=== PATIENT | male | born 1970 | race Caucasian/White ===

== ENCOUNTER 2016-05-24 07:05 | Day surgery (SDC) | payer OTHER ==
[2016-05-23 10:16] VITALS: Ht 172.7 cm; Wt 95.5 kg
[2016-05-24] VITALS (11 sets, daily range): BP systolic 110–133; BP diastolic 56–83; PULSE 60–88; RESP 18–59
[~2016-05-24] VITALS: Ht 172.7 cm; Wt 95.5 kg
[~2016-05-24 07:05] MED LIST: CEFAZOLIN 2 GM/50 ML (PMX) 50 ML IVPB ONE; SOD CHLORIDE 0.9% 1,000 ML IV SCH
[2016-05-24 08:16] LABS: BASOPHILS % 0.7 % (0.0-2.0); EOSINOPHILS # 0.1 10^3/ul (0.0-0.5); EOSINOPHILS % 1.7 % (0.0-7.0); HEMATOCRIT 37.8 % (42.0-52.0); HEMOGLOBIN 13.1 g/dl (14.0-18.0); LYMPHOCYTES # 1.6 10^3/ul (0.8-2.9); LYMPHOCYTES % 40.3 % (15.0-51.0); MEAN CORPUSCULAR HEMOGLOBIN 31.1 pg (29.0-33.0); MEAN CORPUSCULAR HGB CONC 34.6 g/dl (32.0-37.0); MEAN CORPUSCULAR VOLUME 89.8 fl (82.0-101.0); MEAN PLATELET VOLUME 7.2 fl (7.4-10.4); MONOCYTE # 0.5 10^3/ul (0.3-0.9); MONOCYTES % 12.3 % (0.0-11.0); NEUTROPHIL # 1.8 10^3/ul (1.6-7.5); PLATELET COUNT 246 10^3/UL (140-440); RED BLOOD COUNT 4.21 10^6/ul (4.70-6.10); RED CELL DISTRIBUTION WIDTH 12.4 % (11.5-14.5); UNCORRECTED WBC 3.9 10^3/ul (4.8-10.8); WHITE BLOOD COUNT 3.9 10^3/ul (4.8-10.8)
[2016-05-24 08:19] LABS: CONDITION 1
[2016-05-24 08:35] LABS: INR 0.98
[2016-05-24 08:36] LABS: PARTIAL THROMBOPLASTIN TIME 31.7 Sec (25.0-35.0); POTASSIUM 3.9 mmol/L (3.5-5.1)
[2016-05-24 08:38] LABS: CREATININE 1.11 mg/dl (0.61-1.24)
[2016-05-24 08:39] LABS: CALCIUM 9.1 mg/dl (8.4-10.2)
[2016-05-24] MEDS ORDERED: DIPHENHYDRAMINE 50 MG INJ IV PRN (09:30)
[2016-05-24] MEDS ORDERED: PROCHLORPERAZINE 10 MG INJ IV PRN (09:30)
[2016-05-24] MEDS ORDERED: HYDROmorphONE (0.2 MG/ML) 10ML SYG IV PRN (09:30)
[2016-05-24] MEDS ORDERED: MEPERIDINE 25 MG INJ IV PRN (09:30)
[2016-05-24] MEDS ORDERED: OXYCODONE/ACETAMINOPHEN (5/325) TAB PO PRN ×2 (09:30)
[2016-05-24] MEDS ORDERED: FENTAnyl 50 MCG/ML VIAL IV PRN (09:30)
[2016-05-24] MEDS ORDERED: METOCLOPRAMIDE 10 MG INJ IV PRN (09:30)
[2016-05-24] MEDS ORDERED: ONDANSETRON 4 MG INJ IV PRN (09:30)
[2016-05-24] MEDS ORDERED: KETOROLAC 30 MG INJ IV ONE (09:30)
[2016-05-24] MEDS ORDERED: CEFAZOLIN 1 GM INJ ONE (09:31)
[2016-05-24] MEDS ORDERED: MIDAZOLAM 1 MG/ML 2 ML INJ ONE (09:31)
[2016-05-24] MEDS ORDERED: FENTAnyl 50 MCG/ML VIAL ONE (09:31)
[2016-05-24] MEDS ORDERED: PROPOFOL 20 ML ONE (09:31)
[2016-05-24] MEDS ORDERED: LIDOCAINE 2% (SDV) 5 ML INJ ONE (09:31)
[2016-05-24] MEDS ORDERED: BUPIVACAINE 0.25%/EPI (SDV) 30 ML INJ ONE (10:07)
[2016-05-24] MEDS ORDERED: LIDOCAINE 1%/EPI 30 ML INJ ONE (10:44)
[2016-05-24] MEDS ORDERED: ONDANSETRON 4 MG INJ ONE (10:52)
[2016-05-24] MEDS ORDERED: METOCLOPRAMIDE 10 MG INJ ONE (10:53)
--- NOTE | 2016-05-24 12:10 | OPR ---
DATE OF OPERATION: 05/24/2016 PREOPERATIVE DIAGNOSIS: Left temporal lesions x2. POSTOPERATIVE DIAGNOSES: 1. Left temporal lesion. 2. Left temporal/scalp lesion. PROCEDURE: 1. Excision of left temporal lesion with local skin flap advancement closure. 2. Excision of left temporal/scalp lesion with local skin flap advancement closure. ANESTHESIA: General. ANESTHESIOLOGIST: Dr. Ivy Ames SURGEON: Hema Lindsey MD OPERATIONS GENERAL AGENT: Dr. Del Valle INDICATIONS FOR PROCEDURE: The patient is a 45-year-old male who presented with a relatively large raised pigmented lesion over his left temporal area. He wished for it to be removed. There was a s econd lesion more superiorly that was somewhat smaller and he also requested removal of that lesion. The patient consented and was scheduled for surgery. DESCRIPTION OF PROCEDURE: The patient was brought to the operating theater and placed under general anesthesia. The left temporal and scalp region was prepped and draped in the usual sterile fashion . Attention was first directed to the larger lesion. An elliptical incision was made widely around the lesion. This portion of skin was elevated and transected using cautery. It was removed and se nt for permanent pathologic analysis. The area was then infiltrated with 1% lidocaine local anesthe tic with epinephrine. Bleeding was controlled with cautery. Skin flaps were then created inferiorl y and superiorly to allow for tension-free closure. The flaps were rotated together and the skin wa s closed with 3-0 nylon sutures in simple interrupted fashion. A similar procedure was utilized to r emove the more superior lesion which was at the junction between the sikh region and the scalp. A gain, an elliptical excision took place and this lesion was excised, removed and sent for pathologic analysis. Again, skin flaps were created and again the area was infiltrated with 1% lidocaine loca l anesthetic with epinephrine, and the skin was then closed with 3-0 nylon sutures in simple interru pted fashion. The patient tolerated the procedure well. Estimated blood loss was 10 mL. There wer e no complications and the patient was transported in stable condition to the recovery room. Dictated By: HEMA RILEY/NTS Conf#: [id number] DID#: [id number]
== END 2016-05-24 13:17 | disposition home or self-care (01) ==
LOC: SDS 07:05
PROVIDERS: ATTEND Surgery Surgical Oncology
DX: L57.8 Other skin changes due to chronic exposure to nonionizing radiation (principal); L82.1 Other seborrheic keratosis
CPT/HCPCS: 14020; 80048; 85025; 85610; 85730; 88305; J0690; J1885; J2250; J2405; J2765; J3010; Z7512; Z7610

== ENCOUNTER 2018-06-10 09:33 | Inpatient (IN) | payer OTHER ==
[~2018-06-10 09:33] MED LIST changes: -CEFAZOLIN 2 GM/50 ML (PMX) 50 ML IVPB ONE; +HYDR-4011 PO; -SOD CHLORIDE 0.9% 1,000 ML IV SCH
[2018-06-10 13:00] VITALS: PULSE 88
--- NOTE | 2018-06-10 13:00 | NUR ---
RN NOTES: PT ARRIVED TO UNIT FROM [facility]. PT IS AOX4, STEADY GAIT, RESPIRATIONS UNLABORED. WILL NOTIFY MD FOR HIS ARRIVAL TO UNIT. PROJECTION PRINTER ON. WILL MONITOR PT.
[2018-06-10] MEDS ORDERED: BACLOFEN 10 MG TAB PO PRN (14:30)
[2018-06-10] MEDS ORDERED: MULTIVITAMINS 10 ML, THIAMINE 100 MG, FOLIC ACID 1 MG in SOD CHLORIDE 0.9% 1,000 ML IVPB SCH (14:30)
[2018-06-10] MEDS ORDERED: NACL 0.9% 3 ML SYG IV SCH (14:30)
[2018-06-10] MEDS ORDERED: ACETAMINOPHEN 325 MG TAB PO PRN (14:30)
[2018-06-10] MEDS: LORAZEPAM 2 MG INJ IV PRN (14:37)
[2018-06-10] MEDS: PANTOPRAZOLE 40 MG INJ IV SCH (14:37)
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
[2018-06-10 15:14] VITALS: BP 111/57; PULSE 85; RESP 20
[2018-06-10] MEDS ORDERED: FOLIC ACID 1 MG TAB PO ONE (15:30)
[2018-06-10] MEDS ORDERED: THIAMINE 100 MG TAB PO ONE (15:30)
[2018-06-10] MEDS ORDERED: MULTIVITAMINS THERAPEUTIC TAB PO ONE (15:30)
[2018-06-10] MEDS ORDERED: METOCLOPRAMIDE 10 MG INJ IV PRN (16:00)
--- NOTE | 2018-06-10 16:10 | CONS ---
Date/Time of Note Date/Time of Note DATE: 06/10/18 TIME: 15:53 Assessment/Plan Assessment/Plan Hospital Course Summary Assessment and Plan: Assessment: Hematemesis, melena Normocytic anemia Epigastric pain Alcohol withdrawal Persistent Hiccups -Started on baclofen - will add Reglan PRN Plan: PPI BID-we will start Reglan 10 mg every 6 hours as needed for hiccups Unable to reviewed detailed CT abd/pelvis report will order Liver u/s to assess for liver cirrhosis - will also order INR- currently plt function wnl Ativan for ETOh withdrawal - maintain close observation Continue PPI NPO after 06/11/18 0500 for EGD tomorrow Endoscopy - risks/benefits/alternatives/indications of procedure and sedation/anesthesia discussed with patient who states understanding and gives informed consent to proceed. Patient seen in collaboration with Dr. Mcintosh Result Diagram: 06/10/18 1503 06/10/18 1503 Results 24hrs Laboratory Tests Test 06/10/18 15:03 White Blood Count 8.2 # Red Blood Count 3.84 L Hemoglobin 11.8 L Hematocrit 34.1 L Mean Corpuscular Volume 88.8 Mean Corpuscular Hemoglobin 30.7 Mean Corpuscular Hemoglobin Concent 34.6 Red Cell Distribution Width 11.9 Platelet Count 178 Mean Platelet Volume 8.4 Immature Granulocytes % 0.500 H Neutrophils % 82.2 H Lymphocytes % 10.9 L Monocytes % 6.2 Eosinophils % 0.0 Basophils % 0.2 Nucleated Red Blood Cells % 0.0 Immature Granulocytes # 0.040 H Neutrophils # 6.8 Lymphocytes # 0.9 Monocytes # 0.5 Eosinophils # 0.0 Basophils # 0.0 Nucleated Red Blood Cells # 0.0 Sodium Level 136 Potassium Level 3.8 Chloride Level 99 Carbon Dioxide Level 25 Anion Gap 12 Blood Urea Nitrogen 9 Creatinine 0.81 Est Glomerular Filtrat Rate mL/min > 60 Glucose Level 128 Calcium Level 8.3 L Total Bilirubin 1.1 Direct Bilirubin 0.00 Indirect Bilirubin 1.1 Aspartate Amino Transf (AST/SGOT) 45 Alanine Aminotransferase (ALT/SGPT) 41 Alkaline Phosphatase 78 Total Protein 7.0 Albumin 3.8 Globulin 3.20 Albumin/Globulin Ratio 1.18 CC: SARAH MCINTOSH MD ; Consultation Date/Type/Reason Admit Date/Time Jun 10, 2018 at 12:43 Date of Consultation: Jun 10, 2018 Type of Consult GI Reason for Consultation Hematemesis/Melena Hx of Present Illness This a 47-year-old male with history of longtime alcohol abuse (started drinking at the age of 17 and goes on binges every 3-6 months) his last binge patient drink for 6 days straight drinking 2-3 bottles of alcohol per day. He presented to [facility] with complaints of epigastric pain and hematemesis patient was treated there with PPI and antiemetics with the plan to discharge, however patient went into alcohol withdrawal. Labs were obtained there, noted elevated lactic acid that resolved within 24 hours LFTs were normal at [facility] and again normal here, lipase was checked and found to be within normal limits with. A noted hemoglobin of 14.9 on 06/09/18 at [facility] hemoglobin here Today is 11.8, hematocrit 34.1, MCV 88.8, MCH 30.7. CT abdomen pelvis was obtained at [facility] in notes appears CT showed distended bladder, other stephenson no acute findings, patient was asked to void which he then voided 1000 mL without difficulty. However going through paperwork I do not see the full report of the CT scan abdomen/pelvis therefore I am unable to review complete results. There is a CD in the chart which i am unable to accesses findings. Currently patient complains of persistent hiccups he states he has been having melena for the past few days he denies bright red blood per rectum denies further episodes of nauseavomiting or hematemesis. Review of Systems: A 12 system, review was conducted and is negative except as noted in the HPI or here. Past Medical History Medications Current Medications IV Flush (NS 3 ml) 3 ml PER PROTOCOL IV ; Start 06/10/18 at 14:30 Ondansetron HCl (Zofran Inj) 4 mg Q6H PRN IV NAUSEA; Start 06/10/18 at 14:30 Acetaminophen (Tylenol Tab) 650 mg Q6H PRN PO MODERATE PAIN LEVEL 4-6; Start 06/10/18 at 14:30 Acetaminophen/ Hydrocodone Bitart ([place] (5/325)) 1 tab Q6H PRN PO BREAKTHROUGH PAIN; Start 06/10/18 at 14:30 Pantoprazole (Protonix Iv) 40 mg BID@0600,1800 IV Last administered on 06/10/18at 14:37; Admin Dose 40 MG; Start 06/10/18 at 14:30 Lorazepam (Ativan) 2 mg Q2 PRN IV CONTROL WITHDRAWAL SYMPTOMS Last administered on 06/10/18at 14:37; Admin Dose 2 MG; Start 06/10/18 at 14:30 Baclofen (Lioresal) 10 mg TID PRN PO hiccups; Start 06/10/18 at 14:30 Allergies: Coded Allergies: No Known Allergy (Unverified , 05/02/18) Social History Alcohol Use: heavy Smoking Status: Never smoker Drug Use: none Exam/Review of Systems Vital Signs Vitals Vital Signs Date Temp Pulse Resp B/P (MAP) Pulse Ox O2 O2 Flow FiO2 Time Delivery Rate 06/10/18 98.3 85 20 111/57 98 15:14 (75) Exam PHYSICAL EXAMINATION: GENERAL: Alert & oriented, overweight, in no acute distress-with persistent hiccups SKIN: No lesions HEAD: Normocephalic, atraumatic, no tenderness. EYES: Pupils equal reactive to light, no discharge. EARS/NOSE AND THROAT: Ears normal, nose normal NECK: Supple, no masses, thyroid normal CHEST: Inspection within normal limits. CARDIOVASCULAR: Heart: Regular rate and rhythm RESPIRATORY: Lungs clear to auscultation GASTROINTESTINAL AND LIVER: Abdomen: Soft, epigastric tenderness, non-distended, no hernias, no masses, no organomegaly, no ascites, no guarding, no rebound tenderness, normoactive bowel sounds. Rectal: Deferred. EXTREMITIES: No cyanosis, clubbing or edema. Medications Medications Current Medications IV Flush (NS 3 ml) 3 ml PER PROTOCOL IV ; Start 06/10/18 at 14:30 Ondansetron HCl (Zofran Inj) 4 mg Q6H PRN IV NAUSEA; Start 06/10/18 at 14:30 Acetaminophen (Tylenol Tab) 650 mg Q6H PRN PO MODERATE PAIN LEVEL 4-6; Start 06/10/18 at 14:30 Acetaminophen/ Hydrocodone Bitart ([place] (5/325)) 1 tab Q6H PRN PO BREAKTHROUGH PAIN; Start 06/10/18 at 14:30 Pantoprazole (Protonix Iv) 40 mg BID@0600,1800 IV Last administered on 06/10/18at 14:37; Admin Dose 40 MG; Start 06/10/18 at 14:30 Lorazepam (Ativan) 2 mg Q2 PRN IV CONTROL WITHDRAWAL SYMPTOMS Last administered on 06/10/18at 14:37; Admin Dose 2 MG; Start 06/10/18 at 14:30 Baclofen (Lioresal) 10 mg TID PRN PO hiccups; Start 06/10/18 at 14:30 JEREMY VERDUZCO Jun 10, 2018 16:08
[2018-06-10 16:11] VITALS: PULSE 86
--- NOTE | 2018-06-10 18:59 | NUR ---
EOSS: NO ACUTE DISTRESS DURING DAY SHIFT. PT IS AOX4, AMBULATES WITH ASSIST, RESPIRATIONS UNLABORED. PT C/O HICCUPS WHICH IS CAUSING SOME ABDOMINAL PAIN. PT WILL BE HAVING EGD TOMORROW; CONSENT SIGNED; NPO AFTER 5AM 06/11/18 PER [place] HART. ALL MEDICATIONS HAVE BEEN GIVEN SCHEDULED. ALL PT'S NEEDS HAVE BEEN MET. 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
[2018-06-10 19:22] VITALS: BP 111/63; PULSE 82; RESP 20
[2018-06-10 20:00] VITALS: PULSE 77
[2018-06-10 23:44] VITALS: BP 103/53; PULSE 82; RESP 20
[2018-06-11] VITALS (18 sets, daily range): BP systolic 109–143; BP diastolic 58–81; PULSE 72–112; RESP 11–20
[2018-06-11] MEDS: PANTOPRAZOLE 40 MG INJ IV SCH ×2 (05:43→18:17)
--- NOTE | 2018-06-11 06:12 | NUR ---
eoss; pt remained npo awaiting for EGD today. no further hiccups noted. uneventful night.
[2018-06-11] MEDS ORDERED: PROPOFOL 200 MG INJ ONE (07:00)
[2018-06-11] MEDS ORDERED: MAGNESIUM SULFATE 2 GM/50 ML 50 ML IVPB ONE (09:30)
[2018-06-11] MEDS ORDERED: POTASSIUM CHLORIDE 100 ML IVPB ONE (10:30)
[2018-06-11] MEDS: LORAZEPAM 2 MG INJ IV PRN ×3 (11:37→23:10)
--- NOTE | 2018-06-11 14:49 | NUR ---
SW: ETOH KRIS met with this 47-year-old Estonian speaking male at bedside for ETOH abuse. Patient states that he lives with his 19-year-old son at [address], [place] [address]. States that he recently got from [place], which is what caused him to drink so heavily. 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 States that when he is unemployed, his son and help him financially. States that he is independent at home with ADL's and states he drives a car. Substance abuse: Patient states that he recently got from his , and states that he started drinking since their separation. Patient states that he was typically a social drinker, and would drink once every 6 months or so. States that he has been drinking every day for the past week due to separation. Denies any drug use/abuse. Patient states that does want to go to rehab, but states that he does not want a referral to be made by this underwriter solicitation director, stating that he can not go directly from the hospital because he needs to finish up a job he had started. KRIS provided patient with numerous resources for residential and outpatient treatment programs, AA meetings and educational material on how alcohol effects his health. Patient receptive. Mental illness: Patient reports no history of anxiety, depression or mental illness. He did state that he has been feeling depressed since his separation, and requested resources for outpatient counseling. SW provided him with numerous resources for outpatient psychotherapy, family counseling, group therapy, etc. Patient also reports he had a brief thought about suicide with no plan and no intent. Contracted for safety. Denies any history of 5150 holds. KRIS provided patient with resources for suicide hotline phone number. Plan/ Follow UP: KRIS provided psychoeducation, psychosocial counseling, provided resources, support and encouragement. Plan is for patient to return back home upon d/c. He declined for referral to be made to alcohol rehab program, stating he will call on his own when ready. Patient denies any questions/ concerns at this time. SW remains available as needed throughout patient's treatment process.
--- NOTE | 2018-06-11 15:00 | NUR ---
RN NOTES: PT WENT FOR EGD. PT IS OAX4, AMBULATES WITH ASSIST, RESPIRATIONS UNLABORED.
--- NOTE | 2018-06-11 15:44 | PREAC ---
Date/Time of Note Date/Time of Note DATE: 06/11/18 TIME: 15:40 Anesthesia Eval and Record Evaluation Time Pre-Procedure Interview DATE: 06/11/18 TIME: 15:40 Age 47 Sex male NPO: 8 hrs Preoperative diagnosis Hematemesis Planned procedure EGD Past Medical History Past Medical History: Includes Cardio: HTN Endo: Diabetes ([place]) GI: Obesity, Other (GI bleed) Heme: Anemia Surgery & Anesthesia Issues No known issue Meds Anticoagulation: No Beta Celia within 24 hr: No Reason Beta Celia not given: Pt. not on B-Celia Active Scripts Hydrocodone/Acetaminophen ([place] 5-325 Tablet) 1 Each Tablet, 1 TAB PO Q6H PRN for PAIN, #10 TAB Prov:MYRTLE CHRISTINA DO 05/02/18 Current Medications IV Flush (NS 3 ml) 3 ml PER PROTOCOL IV ; Start 06/10/18 at 14:30 Ondansetron HCl (Zofran Inj) 4 mg Q6H PRN IV NAUSEA; Start 06/10/18 at 14:30 Acetaminophen (Tylenol Tab) 650 mg Q6H PRN PO MODERATE PAIN LEVEL 4-6; Start 06/10/18 at 14:30 Acetaminophen/ Hydrocodone Bitart ([place] (5/325)) 1 tab Q6H PRN PO BREAKTHROUGH PAIN; Start 06/10/18 at 14:30 Pantoprazole (Protonix Iv) 40 mg BID@0600,1800 IV Last administered on 06/11/18at 05:43; Admin Dose 40 MG; Start 06/10/18 at 14:30 Lorazepam (Ativan) 2 mg Q2 PRN IV CONTROL WITHDRAWAL SYMPTOMS Last administered on 06/11/18at 13:14; Admin Dose 2 MG; Start 06/10/18 at 14:30 Baclofen (Lioresal) 10 mg TID PRN PO hiccups Last administered on 06/10/18at 18:56; Admin Dose 10 MG; Start 06/10/18 at 14:30 Metoclopramide HCl (Reglan) 10 mg Q6 PRN IV hiccups Last administered on 06/10/18at 17:05; Admin Dose 10 MG; Start 06/10/18 at 16:00 Meds reviewed: Yes Allergies Coded Allergies: No Known Allergy (Unverified , 05/02/18) Allergies Reviewed: Yes Labs/Studies Labs Reviewed: Reviewed by anesthesiologist Result Diagram: 06/11/18 0552 06/11/18 0552 Laboratory Tests 06/11/18 05:52 test: N/A Studies: ECG (n/a), CXR (n/a) Pre-procedure Exam Last vitals Vital Signs Date Temp Pulse Resp B/P (MAP) Pulse Ox O2 O2 Flow FiO2 Time Delivery Rate 06/11/18 85 12:01 06/11/18 97.6 16 137/68 97 11:47 (91) Airway: Adequate mouth opening, Adequate thyromental dist Mallampati: Mallampati III Teeth: Normal Lung: Normal Heart: Normal ASA Physical Status ASA physical status: 3 Emergency: None Planned Anesthetic General/MAC: MAC Planned Pain Management Parenteral pain med Pre-operative Attestations Prior to commencing anesthesia and surgery, the patient was re-evaluated, there was verification of: *The patient's identity *The results of appropriate recent lab work and preoperative vital signs *The above evaluation not changing prior to induction *Anesthetic plan, risk benefits, alternative and complications discussed with patient/family; questions answered; patient/family understands, accepts and wishes to proceed. JOSE OROZCO MD Jun 11, 2018 15:44
--- NOTE | 2018-06-11 15:46 | HPN ---
Date/Time of Note Date/Time of Note DATE: 06/11/18 TIME: 15:45 Interval H&P Admission Note Pt. seen H&P reviewed: No system changes STEVE NORRIS Jun 11, 2018 15:46
--- NOTE | 2018-06-11 15:56 | PAC ---
Date/Time of Note Date/Time of Note DATE: 06/11/18 TIME: 15:56 Post-Anesthesia Notes Post-Anesthesia Note Last documented vital signs Vital Signs Date Temp Pulse Resp B/P (MAP) Pulse Ox O2 O2 Flow FiO2 Time Delivery Rate 06/11/18 85 12:01 06/11/18 97.6 86 16 137/68 97 16:09 (91) Activity: WNL Respiratory function: WNL Cardiovascular function: WNL Mental status: Baseline Pain reasonably controlled: Yes Hydration appropriate: Yes Nausea/Vomiting absent: Yes JOSE OROZCO MD Jun 11, 2018 15:56
[2018-06-11] MEDS ORDERED: morphine (1 MG/ML) 10ML SYRINGE IV PRN ×2 (16:00)
[2018-06-11] MEDS ORDERED: OXYCODONE/ACETAMINOPHEN (5/325) TAB PO PRN (16:00)
[2018-06-11] MEDS ORDERED: METOCLOPRAMIDE 10 MG INJ IV PRN (16:00)
[2018-06-11] MEDS ORDERED: FENTAnyl 50 MCG/ML VIAL IV PRN ×2 (16:00)
[2018-06-11] MEDS ORDERED: LABETALOL HCL 20MG INJ IV PRN (16:00)
[2018-06-11] MEDS ORDERED: EPHEDrine SULFATE 50 MG/5 ML SYG IV PRN (16:00)
[2018-06-11] MEDS ORDERED: hydrALAzine 20 MG INJ IV PRN (16:00)
[2018-06-11] MEDS ORDERED: ONDANSETRON 4 MG INJ IV PRN (16:00)
--- NOTE | 2018-06-11 16:29 | NUR ---
S/P EGD. AWAKE/ALERT, FOLLOWS COMMANDS. V/S STABLE/WNL. DENIES PAIN/DISCOMFORT. ORDERS REVIEWED
--- NOTE | 2018-06-11 17:26 | PN ---
Date/Time of Note Date/Time of Note DATE: 06/11/18 TIME: 17:24 Assessment/Plan VTE Prophylaxis Risk score (from Ns)>0 risk: 3 SCD applied (from [facility] [place] [facility]): Yes Pharmacological prophylaxis: NA/contraindicated Pharm contraindication: bleeding Assessment/Plan Assessment/Plan 47 yo man who presents with hematemesis, melena, and withdrawal symptoms after 6 days of heavy drinking #Upper GI bleed - Hematemesis and melena - Hgb 14.9 in [facility] ED, will trend. - EGD 06/11 shows gastric AVMs and duodenal ulcer. - Protonix BID. - GI consulted. - Anticipate discharge on PPI. #EtOH withdrawal - Presented to [facility] ED with EtOH level 247, went into withdrawal, got Valium and a few doses of IV ativan - Will continue IV ativan here #Hiccups- resolved #Abdominal pain -resolved DVT: SCDs GI: Protonix Result Diagram: 06/11/18 0552 06/11/18 0552 Results 24hrs Laboratory Tests Test 06/11/18 05:48 06/11/18 05:52 Prothrombin Time 13.1 Prothrombin Time Ratio 1.0 INR International Normalized Ratio 0.98 White Blood Count 7.0 Red Blood Count 3.98 L Hemoglobin 12.4 L Hematocrit 35.3 L Mean Corpuscular Volume 88.7 Mean Corpuscular Hemoglobin 31.2 Mean Corpuscular Hemoglobin Concent 35.1 Red Cell Distribution Width 11.9 Platelet Count 180 Mean Platelet Volume 9.1 Immature Granulocytes % 0.300 Neutrophils % 77.6 H Lymphocytes % 13.5 L Monocytes % 7.3 Eosinophils % 0.9 Basophils % 0.4 Nucleated Red Blood Cells % 0.0 Immature Granulocytes # 0.020 Neutrophils # 5.4 Lymphocytes # 0.9 Monocytes # 0.5 Eosinophils # 0.1 Basophils # 0.0 Nucleated Red Blood Cells # 0.0 Sodium Level 138 Potassium Level 3.4 L Chloride Level 99 Carbon Dioxide Level 27 Anion Gap 12 Blood Urea Nitrogen 7 Creatinine 0.85 Est Glomerular Filtrat Rate mL/min > 60 Glucose Level 114 Hemoglobin A1c 5.6 Calcium Level 8.7 Phosphorus Level 3.0 Magnesium Level 1.9 Total Bilirubin 1.1 Direct Bilirubin 0.00 Indirect Bilirubin 1.1 Aspartate Amino Transf (AST/SGOT) 41 Alanine Aminotransferase (ALT/SGPT) 33 Alkaline Phosphatase 75 Total Protein 7.0 Albumin 3.7 Globulin 3.30 H Albumin/Globulin Ratio 1.12 Subjective 24 Hr Interval Summary Free Text/Dictation No acute overnight events. His hiccups resolved. Intermittently requiring IV ativan. Exam/Review of Systems Exam Vitals Gen: Well built man well appearing, no acute distress. Eyes: PERRL, no icterus HEENT: Clear oropharynx, moist mucous membranes Neck: No lymphadenopathy Card: Regular rate and rhythm, no murmurs Pulm: Clear to auscultation bilaterally. Abd: Soft, epigastric tenderness to palpation, nondistended. Ext: No cyanosis/clubbing/edema Skin: warm dry well perfused Neuro: Minimal hand tremor, tongue fasciculations noted. Results Results 24hrs Laboratory Tests Test 06/11/18 05:48 06/11/18 05:52 Prothrombin Time 13.1 Prothrombin Time Ratio 1.0 INR International Normalized Ratio 0.98 White Blood Count 7.0 Red Blood Count 3.98 L Hemoglobin 12.4 L Hematocrit 35.3 L Mean Corpuscular Volume 88.7 Mean Corpuscular Hemoglobin 31.2 Mean Corpuscular Hemoglobin Concent 35.1 Red Cell Distribution Width 11.9 Platelet Count 180 Mean Platelet Volume 9.1 Immature Granulocytes % 0.300 Neutrophils % 77.6 H Lymphocytes % 13.5 L Monocytes % 7.3 Eosinophils % 0.9 Basophils % 0.4 Nucleated Red Blood Cells % 0.0 Immature Granulocytes # 0.020 Neutrophils # 5.4 Lymphocytes # 0.9 Monocytes # 0.5 Eosinophils # 0.1 Basophils # 0.0 Nucleated Red Blood Cells # 0.0 Sodium Level 138 Potassium Level 3.4 L Chloride Level 99 Carbon Dioxide Level 27 Anion Gap 12 Blood Urea Nitrogen 7 Creatinine 0.85 Est Glomerular Filtrat Rate mL/min > 60 Glucose Level 114 Hemoglobin A1c 5.6 Calcium Level 8.7 Phosphorus Level 3.0 Magnesium Level 1.9 Total Bilirubin 1.1 Direct Bilirubin 0.00 Indirect Bilirubin 1.1 Aspartate Amino Transf (AST/SGOT) 41 Alanine Aminotransferase (ALT/SGPT) 33 Alkaline Phosphatase 75 Total Protein 7.0 Albumin 3.7 Globulin 3.30 H Albumin/Globulin Ratio 1.12 MALIKA FRANZ MD Jun 11, 2018 17:26
[2018-06-11] MEDS: HYDROCODONE/APAP (5/325) TAB PO PRN ×2 (17:55→23:33)
--- NOTE | 2018-06-11 18:38 | NUR ---
EOSS: NO ACUTE DISTRESS DURING DAY SHIFT. PT HAD AN EGD DONE TODAY AND RESULTED WITH GASTRITIS AND DUODENAL ULCER. PT GIVEN INFORMATION ABOUT THE FINDINGS. PT IS AOX4, RESPIRATIONS UNLABORED, AMBULATES WITH ASSISTANCE. ALL MEDICATIONS HAVE BEEN GIVEN SCHEDULED. ALL PT'S NEEDS HAVE BEEN MET. 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
[2018-06-11] MEDS: ONDANSETRON 4 MG INJ IV PRN (19:49)
[2018-06-12] VITALS (9 sets, daily range): BP systolic 120–126; BP diastolic 68–74; PULSE 67–87; RESP 15–18
--- NOTE | 2018-06-12 06:13 | NUR ---
EOSS Pt AOX4 ambulatory, V/S stable, C/O pain and become anxious last night, given norco po for pain & ativan IVP, tolerated well, slept the whole night w/o complaint, V/S stable, Tele = NSR, will give report to oncoming shift.
[2018-06-12] MEDS: LORAZEPAM 2 MG INJ IV PRN ×2 (07:27→18:18)
[2018-06-12] MEDS: PANTOPRAZOLE 40 MG INJ IV SCH ×2 (07:41→17:46)
[2018-06-12] MEDS ORDERED: CARAS PO (11:34)
[2018-06-12] MEDS ORDERED: PANT40TA3 PO (11:34)
[2018-06-12] MEDS: ONDANSETRON 4 MG INJ IV PRN (15:08)
[2018-06-12] MEDS: HYDROCODONE/APAP (5/325) TAB PO PRN (15:09)
--- NOTE | 2018-06-12 16:15 | PDOCDIS ---
Discharge Instructions DIAGNOSIS Discharge Diagnosis Gastritis, duodenal ulcer. CONDITION [id number] Patient Condition: [id number] Good HOME CARE INSTRUCTIONS: [id number] Diet Instructions: [id number] Regular ACTIVITY: [id number] Activity Restrictions: Rtomm2s No Restrictions FOLLOW UP/APPOINTMENTS Follow-up Plan 1. Abstain from alcohol for at least 3 months. 2. Take all medications as prescribed. 3. See your primary care doctor in 1-2 weeks. 4. Return to the emergency room if you vomit up blood again. Some dark stools for a few days is not concerning. MALIKA FRANZ MD Jun 12, 2018 16:15
--- NOTE | 2018-06-12 16:30 | NUR ---
RN NOTES PT. HAS ORDER FOR DISCHARGE HOME. PER PT. WAITING TO BE [employer] BY HIS FAMILY.
--- NOTE | 2018-06-12 17:40 | DS ---
Date/Time of Note Date/Time of Note DATE: 06/12/18 TIME: 17:38 Discharge Summary Admission/Discharge Info Admit Date/Time Jun 10, 2018 at 12:43 Discharge Date/Time Jun 12, 2018 Discharge Diagnosis Gastritis, duodenal ulcer. Patient Condition: Good Hx of Present Illness Mr. Man is a 47 yo man who presents with hematemesis and abdominal pain after drinking heavily. The patient was in his usual state of health until early this morning, when he vomited up bright red blood. He also reports having dark tarry stool a few days ago He had been drinking heavily for the past 6 days, but cannot quantify exactly how much. He also has had two days of bad hiccups. He complains of RUQ and epigastric pain, tearing/stabbing, which is mostly associated with the hiccups. He has been hospitalized once before for alcohol withdrawal but denies ever having a seizure or requiring intubation. He presented initially to the ED at [facility]. He presented vitals stable; Hgb 14.9, WBC 14.1. Lactate was 6.9, dropped to 2.7 with IV fluids. EtOH level was 247. He had withdrawal symptoms and was started on Valium and IV ativan. Got dilaudid for abdominal pain. Transferred to [facility] for insurance reasons. On my exam, the patient has very frequent hiccups which cause upper abdominal pain. Hospital Course He was started on Ativan IV prn alcohol withdrawal. His hiccups resolved after getting baclofen and reglan. He was taken for EGD to evaluate hematemesis. He was found to have diffuse gastritis, small nonbleeding gastric AVMs, and a large nonbleeding duodenal ulcer. Of note, the patient reports taking frequent NSAIDs for nonspecific pain as well as heavy alcohol use. He was advised to stop both of these. He was discharge on PPI and sucralfate. Home Meds Active Scripts Sucralfate* (Carafate*) 1 Gm/10 Ml Susp, 1 GM PO TID, #90 GM Prov:MALIKA FRANZ MD 06/12/18 Pantoprazole* (Protonix*) 40 Mg Tablet.dr, 40 MG PO BID, #30 TAB 3 Refills Prov:MALIKA FRANZ MD 06/12/18 Hydrocodone/Acetaminophen ([place] 5-325 Tablet) 1 Each Tablet, 1 TAB PO Q6H PRN for PAIN, #10 TAB Prov:MYRTLE CHRISTINA DO 05/02/18 Follow-up Plan 1. Abstain from alcohol for at least 3 months. 2. Take all medications as prescribed. 3. See your primary care doctor in 1-2 weeks. 4. Return to the emergency room if you vomit up blood again. Some dark stools for a few days is not concerning. Primary Care Provider Not On Staff Doctor Time spent on discharge: > 30 minutes Pending Labs Laboratory Tests Test 06/12/18 06:13 White Blood Count 4.5 10^3/ul (4.8-10.8) Red Blood Count 4.20 10^6/ul (4.70-6.10) Hemoglobin 13.1 g/dl (14.0-18.0) Hematocrit 37.5 % (42.0-52.0) Mean Corpuscular Volume 89.3 fl (82.0-101.0) Mean Corpuscular Hemoglobin 31.2 pg (29.0-33.0) Mean Corpuscular Hemoglobin Concent 34.9 g/dl (32.0-37.0) Red Cell Distribution Width 11.7 % (11.5-14.5) Platelet Count 175 10^3/UL (140-415) Mean Platelet Volume 9.3 fl (7.4-10.4) Immature Granulocytes % 0.200 % (0.001-0.429) Neutrophils % 57.5 % (39.0-77.0) Lymphocytes % 31.1 % (15.0-51.0) Monocytes % 8.1 % (0.0-11.0) Eosinophils % 2.9 % (0.0-7.0) Basophils % 0.2 % (0.0-2.0) Nucleated Red Blood Cells % 0.0 /100WBC (0.0-0.0) Immature Granulocytes # 0.010 10^3/ul (0.0-0.031) Neutrophils # 2.6 10^3/ul (1.6-7.5) Lymphocytes # 1.4 10^3/ul (0.8-2.9) Monocytes # 0.4 10^3/ul (0.3-0.9) Eosinophils # 0.1 10^3/ul (0.0-0.5) Basophils # 0.0 10^3/ul (0.0-0.1) Nucleated Red Blood Cells # 0.0 10^3/ul (0.0-0.0) Sodium Level 140 mmol/L (135-144) Potassium Level 3.4 mmol/L (3.5-5.1) Chloride Level 100 mmol/L (97-110) Carbon Dioxide Level 26 mmol/L (21-31) Anion Gap 14 (5-13) Blood Urea Nitrogen 9 mg/dl (7-20) Creatinine 0.86 mg/dl (0.61-1.24) Est Glomerular Filtrat Rate mL/min > 60 mL/min (>60) Glucose Level 121 mg/dl (70-220) Calcium Level 8.8 mg/dl (8.4-10.2) Phosphorus Level 4.3 mg/dl (2.5-4.9) Magnesium Level 1.9 mg/dl (1.7-2.5) MALIKA FRANZ MD Jun 12, 2018 17:40
--- NOTE | 2018-06-12 18:34 | NUR ---
EOSS PT. IS ALERT, CALL LIGHT W/IN REACH. NO SOB OR DISTRESS NOTED. C/O PAIN, PRN PAIN MEDS GIVEN. FOR D/C HOME TODAY, WAITING FOR HIS FAMILY TO PICK HIM UP. KEPT CLEAN AND DRY. WILL CONTINUE TO MONITOR.
== END 2018-06-12 20:00 | disposition home or self-care (01) | DRG 378 ==
LOC: TEL 12:43
PROVIDERS: ADMIT Internal Medicine; ATTEND Internal Medicine
PROC: 0DJ08ZZ Inspection of Upper Intestinal Tract, Via Natural or Artificial Opening Endoscopic (ICD-10-PCS; principal; 2018-06-11 15:30)
DX: K92.0 Hematemesis (principal); F10.230 Alcohol dependence with withdrawal, uncomplicated; K31.819 Angiodysplasia of stomach and duodenum without bleeding; K26.3 Acute duodenal ulcer without hemorrhage or perforation; K29.70 Gastritis, unspecified, without bleeding; Y90.8 Blood alcohol level of 240 mg/100 ml or more; R10.11 Right upper quadrant pain; R06.6 Hiccough
CPT/HCPCS: 76705; 80048; 80053; 83036; 83735; 84100; 85025; 85610; C9113; J2060; J2405; J2765; J3475; J3480